=== PATIENT | male | born 1975 | race Two or more races ===

== ENCOUNTER 2016-09-24 22:43 | Emergency (ER) | payer SELFPAY ==
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
== END 2016-09-24 23:09 | disposition left against medical advice (07) ==
LOC: EDBD 22:43 → EMR 22:45
DX: M54.9 Dorsalgia, unspecified (principal); Z53.21 Procedure and treatment not carried out due to patient leaving prior to being seen by health care provider
CPT/HCPCS: 99281